=== PATIENT | male | born 1970 | race Caucasian/White ===

== ENCOUNTER 2019-07-19 08:27 | Emergency (ER) | payer MEDICAID ==
[~2019-07-19] VITALS: Ht 170.2 cm; Wt 70.8 kg
[2019-07-19 08:28] VITALS: Ht 170.2 cm; Wt 70.8 kg
[2019-07-19 09:11] LABS: BASOPHIL % 0.1 % (0-2); PLATELET COUNT 281 x10^3mcL (130-400); RED CELL DISTRIBUTION WIDTH 13.3 % (11.5-14.5)
[2019-07-19 09:24] LABS: UA SPECIFIC GRAVITY 1.015 (1.005-1.035); microscopic required? YES; urine erythrocyte TRACE (NEGATIVE)
[2019-07-19 09:29] LABS: CALCIUM 8.4 mg/dL (8.5-10.1); CARBON DIOXIDE 30.5 mmol/L (21-32); CHLORIDE SERUM 104 mmol/L (98-107); CREATININE SERUM 1.1 mg/dL (0.7-1.3); GFR1 > 60 mL/min; GLUCOSE SERUM 86 mg/dL (74-106); POTASSIUM SERUM 3.5 mmol/L (3.5-5.1); SODIUM SERUM 144 mmol/L (136-145)
[2019-07-19 09:32] LABS: AMPHETAMINE QUAL UR NONE DETECTED (See below)
[2019-07-19 09:33] LABS: ALBUMIN 3.6 g/dL (3.4-5.0); ALKALINE PHOSPHATASE 49 U/L (46-116); ALT/SGPT 43 U/L (16-63); AMYLASE 54 U/L (25-115); AST/SGOT 24 U/L (15-37); BILIRUBIN TOTAL 0.29 mg/dL (0.20-1.00); LIPASE 160 IU/L (73-393); TOTAL PROTEIN, SERUM 7.4 g/dL (6.4-8.2)
[2019-07-19 11:37] VITALS: BP 108/61
== END 2019-07-19 11:37 | disposition home or self-care (01) ==
LOC: ED 08:27
PROVIDERS: Emergency Medicine
DX: R10.9 Unspecified abdominal pain (principal)
CPT/HCPCS: J1885